=== PATIENT | female | born 1960 | race Caucasian/White ===

== ENCOUNTER → 2021-08-08 12:01 | Outpatient (CLI) | payer OTHER, SELFPAY | PROVIDERS: Visit Provider Physician Assistant | DX: R22.9 Localized swelling, mass and lump, unspecified (principal); N34.3 Urethral syndrome, unspecified | CPT/HCPCS: 87070; 87077; 87086; 87147; 87186; 87205 ==

== ENCOUNTER → 2021-08-16 13:31 | Outpatient (CLI) | payer OTHER, SELFPAY ==
--- NOTE | 2021-08-16 | DI.MG.S_ITS ---
UNILATERAL RIGHT DIGITAL DIAGNOSTIC MAMMOGRAM 3D/2D WITH ADDITIONAL VIEWS: 08/16/2021 CLINICAL: Patient returns today to evaluate focal asymmetries in the right breast. Comparison is made to exams dated: 06/04/2021 mammogram - , 08/12/2019 mammogram, 03/17/2018 mammogram, and 02/27/2017 mammogram - [facility]. The tissue of right breast is predominantly fatty. Two of the previously questioned asymmetries dissipated with spot compression and are not confirmed on the additional views. Another at the 8-9 o'clock position measuring approximately 1 cm persists and appears masslike. IMPRESSION: INCOMPLETE: NEEDS ADDITIONAL IMAGING EVALUATION The focal asymmetry in the right breast is indeterminate. An ultrasound will be performed for further evaluation. Remaining asymmetries questioned on the prior exam are no longer demonstrated. These were likely due to superimposition of normal fibroglandular tissue on the prior study. This exam was interpreted at Station ID: [id number]. NOTE: For mammograms, a report in lay terms will be sent to the patient. Approximately 15% of breast malignancies will not be visualized mammographically. In the management of a palpable breast mass, a negative mammogram must not discourage biopsy of a clinically suspicious lesion. Electronically Signed By: Fadi Parikh M.D. jr/:08/16/2021 15:01:55 ACR BI-RADS Category 0: Incomplete [id number]
--- NOTE | 2021-08-16 | DI.US.S_ITS ---
LIMITED ULTRASOUND OF RIGHT BREAST: 08/16/2021 CLINICAL: Patient returns today to evaluate an asymmetry in the right breast. Comparison is made to exams dated: 08/16/2021 mammogram - [facility], 06/04/2021 mammogram - [facility], 08/12/2019 mammogram, 03/17/2018 mammogram, 02/27/2017 mammogram, and 02/26/2016 mammogram - [facility]. Color flow and real-time ultrasound of the right breast 8-12 o'clock region were performed. Veronica scale images of the real-time examination were reviewed. There is an oval mass in the right breast at 9 o'clock anterior depth. This oval mass is hypoechoic with posterior acoustic shadowing. This correlates with mammography findings. Color flow imaging demonstrates that there is vascularity present. IMPRESSION: SUSPICIOUS OF MALIGNANCY The oval mass in the right breast is suspicious of malignancy. An ultrasound guided biopsy is recommended. This exam was interpreted at Station ID: [id number]. Electronically Signed By: Fadi Parikh M.D., jr/christiano:08/16/2021 15:02:50 letter sent: Biopsy Required Ultrasound BI-RADS: 4 Suspicious for malignancy
== END ==
PROVIDERS: Referring Provider Obstetrics & Gynecology; Visit Provider Obstetrics & Gynecology
DX: R92.8 Other abnormal and inconclusive findings on diagnostic imaging of breast (principal); N63.15 Unspecified lump in the right breast, overlapping quadrants
CPT/HCPCS: 76642; 77065; G0279

== ENCOUNTER → 2021-09-02 13:33 | Outpatient (CLI) | payer OTHER, SELFPAY ==
--- NOTE | 2021-09-02 | DI.US.S_ITS ---
ULTRASOUND GUIDED BIOPSY RIGHT BREAST USING VACUUM DEVICE WITH MARKING DEVICE INSERTED AND POST MAMMOGRAPHIC IMAGIN09/02/2021 CLINICAL: Right breast mass. PATIENT CONSENT: Risks (minor bleeding, infection, vasovagal reaction and repeat procedure), benefits and alternatives were explained to the patient and written informed consent was obtained. Correlation is made to exams dated: 08/16/2021 ultrasound, 08/16/2021 mammogram - [facility], 06/04/2021 mammogram - [facility], 08/12/2019 mammogram, and 03/17/2018 mammogram - [facility]. An ultrasound guided biopsy using real-time ultrasound was performed for the oval mass located in the right breast at 9 o'clock anterior depth. This was described on the previous mammography and ultrasound reports. The skin was prepped in the usual manner. Local anesthetic was administered to the access site. A skin monico was made in the breast. The abnormality was approached from the lateral aspect. A 13 gauge biopsy needle was placed adjacent to the abnormality under ultrasound guidance. Once the needle was documented to be in the correct location, six specimens were obtained using a vacuum assisted device. A clip was inserted into the biopsy cavity. A sterile dressing was applied to the access site. Post procedure mammographic imaging demonstrates the location device at the targeted area. The specimens were sent to the laboratory for pathological analysis. IMPRESSION: ULTRASOUND GUIDED BIOPSY BENIGN Ultrasound guided biopsy of the mass in the right breast at 9 o'clock anterior depth was successful. Pathology indicates benign fibroadenoma (FA). Pathology results are concordant with imaging findings. This exam was interpreted at Station ID: [id number]. Nirmal ballard jr/christiano:09/05/2021 16:46:18
--- NOTE | 2021-09-02 | PATH_ITS ---
[facility] Accession Number: [id number] No. of containers..01 Tissue . 01 Material submitted: . breast - RIGHT BREAST MASS 9:00 7CMFN . 01 Diagnosis: Right Breast, 9 o'clock, 7 cm from Nipple, Image-Guided Core Biopsy: Consistent with hyalinized fibroadenoma. Negative for malignancy. MRV 09/03/2021 1355 Local . 01 Electronically signed: . Carmelina Cheney MD, Pathologist NPI- [id number] . 01 Gross description: . Received one formalin-filled container, labeled with the patient's name and designated right breast mass 9 o'clock 7 cm FN. The specimen is received in a container with a plastic filter, sample loose in container and consists of multiple light yellow-baires portions of partial cylindrical-shaped tissue which range in size from 0.2 x 0.2 x 0.2 cm to 1.2 x 0.3 x 0.2 cm. The specimen is entirely submitted in one cassette. Possible collection date and time per requisition: 09/02/2021. Total fixation time: Approximately 13 hours. ([id number]) /FRIvelisse 09/03/2021 0240 Local . 01 Pathologist provided ICD-10: N60.21 . 01 CPT . 277025 Specimen Comment: A courtesy copy of this report has been sent to [facility] Pathology Performed at: 01 [facility] [address] [place] [address] [id number] MD Toni Neal MD Phone: [phone]
--- NOTE | 2021-09-02 | DI.MG.S_ITS ---
UNILATERAL RIGHT DIGITAL DIAGNOSTIC MAMMOGRAM 3D/2D POST-EXCISIONAL BIOPSY: 09/02/2021 CLINICAL: Right breast mass post clip. Comparison is made to exams dated: 08/16/2021 mammogram - [facility], 06/04/2021 mammogram - [facility], and 03/17/2018 mammogram - [facility]. The tissue of right breast is predominantly fatty. There is a marker clip in the appropriate position in the right breast at 9 o'clock anterior depth. This marker clip placement is at the biopsy site. IMPRESSION: POST PROCEDURE MAMMOGRAM FOR MARKER PLACEMENT There was a successful marker clip placement in the right breast anterior depth. Based on the Tyrer Cuzick model (a risk assessment model) the patient's lifetime risk is 4.0% and her 10 year risk is 1.7%. According to the ACR, ACS, and NCCN guidelines, an annual breast MRI exam along with mammogram is recommended if the patient's lifetime risk is 20% or greater. This exam was interpreted at Station ID: [id number]. NOTE: For mammograms, a report in lay terms will be sent to the patient. Approximately 15% of breast malignancies will not be visualized mammographically. In the management of a palpable breast mass, a negative mammogram must not discourage biopsy of a clinically suspicious lesion. Electronically Signed By: Nirmal Kilpatrick M.D. aty/:09/02/2021 18:30:38 ACR BI-RADS Category Post-procedure mammogram for marker placement
== END ==
PROVIDERS: PCP Registered Nurse; Referring Provider Obstetrics & Gynecology; Visit Provider Obstetrics & Gynecology
DX: D24.1 Benign neoplasm of right breast (principal)
CPT/HCPCS: 19083; 77065

== ENCOUNTER → 2021-12-23 11:39 | Outpatient (CLI) | payer OTHER, SELFPAY ==
[2021-12-23 12:12] LABS: Add Manual Diff / Slide Review NO; Basophils Absolute Auto 0 /uL (0-100); Basophils Percent Auto 0.7 % (0-2); Eosinophils Absolute Auto 200 /uL (0-450); Eosinophils Percent Auto 4.2 % (2-4); Hematocrit 41.7 % (36-46); Hemoglobin 13.9 g/dL (12.0-16.0); Lymphocytes Absolute Auto 1500 /uL (1100-4500); Mean Corpuscular HGB Conc 33.3 % (30-36); Mean Corpuscular Volume 89.9 fL (80-100); Monocytes Absolute Auto 400 /uL (0-900); Monocytes Percent Auto 7.2 % (3-14); Neutrophils Absolute Auto 3700 /uL (1500-7000); Neutrophils Percent Auto 61.9 % (50-75); Platelet Count 235 X10^3/uL (150-400); Red Blood Cell Count 4.63 X10^6/uL (4.0-5.2); Red Cell Distribution Width 12.9 % (11.6-14.8); White Blood Cell Count 5.9 X10^3/uL (4.5-11.0)
[2021-12-23 12:24] LABS: Alanine Aminotransferase 30 IU/L (<35); Albumin 4.3 g/dL (3.5-5.0); Albumin Globulin Ratio 1.2 (1.0-2.8); Alkaline Phosphatase 67 U/L (38-126); Aspartate Aminotransferase 34 IU/L (14-36); BUN Creatinine Ratio 14.1 (6-22); Bilirubin Total 0.3 mg/dL (0.2-1.3); Blood Urea Nitrogen 12 mg/dL (7-17); Calcium 9.4 mg/dL (8.4-10.2); Carbon Dioxide 29 mmol/L (22-32); Chloride 105 mmol/L (98-107); Estimated Glomerular Filt Rate > 60 mL/min (>60); Globulin 3.7 g/dL (1.7-4.1); Glucose 108 mg/dL (80-110); HEMOLYSIS < 15 (0-50); Potassium 4.5 mmol/L (3.4-5.1); Sodium 142 mmol/L (137-145)
[2021-12-23 13:05] LABS: TSH w/ Reflex to FT4 1.55 uIU/mL (0.47-4.68)
== END ==
PROVIDERS: PCP Registered Nurse; Referring Provider Student in an Organized Health Care Education/Training Program; Visit Provider Student in an Organized Health Care Education/Training Program
DX: R53.83 Other fatigue (principal); M54.2 Cervicalgia
CPT/HCPCS: 36415; 80053; 84443; 85025

== ENCOUNTER 2022-05-31 14:09 | Inpatient (IN) | payer BC, SELFPAY ==
[2022-05-31] VITALS (35 sets, daily range): BP systolic 90–160; BP diastolic 51–106; PULSE 35–89; RESP 6–45; TEMP 36.4–37.1; O2SAT 96–100; BMI 21.1; BMI 20.6
--- NOTE | 2022-05-31 14:21 | DI.RAD.S_ITS ---
PROCEDURE: XR CHEST 1V INDICATIONS: chest pain TECHNIQUE: One view of the chest was acquired. COMPARISON: None. FINDINGS: Surgical changes and devices: None. Lungs and pleura: Lungs are clear. No pleural effusions or pneumothorax. Mediastinum: Mediastinal contours appear normal. Heart size is normal. Bones and chest wall: No suspicious bony lesions. Overlying soft tissues appear unremarkable. IMPRESSION: No acute cardiopulmonary abnormality. Approved by: Lamonte Mohr M.D. on 05/31/2022 at 15:06
--- NOTE | 2022-05-31 14:21 | ED.DIZZY ---
HPI - Dizziness General Chief Complaint: Arrhythmia/Palpitations Stated Complaint: Dizziness, Low BP, fatigue,not feeling right Time Seen by Provider: 05/31/22 14:12 History of Present Illness HPI Narrative: Patient is a 62-year-old female history of hypertension on propranolol personally today with dizziness lightheadedness and bradycardia. She reports that she is not been feeling great for the last month weak tired thinning hair. Today she was at [employer] she felt like she might pass out she went into her blood pressure and heart rate she was found to have a heart rate in the 30s. She was able to drive home she then looked on the Internet and drove herself here to the emergency. She denies numbness tingling or weakness. She did not pass out. She does take propranolol daily. Related Data Home Medications Medication Instructions Recorded Confirmed clonazepam 0.5 mg tablet 0.5 mg PO BID 12/23/21 05/31/22 cholecalciferol (vitamin D3) 10 400 unit PO DAILY 05/31/22 05/31/22 mcg (400 unit) capsule [id number] 1 tab PO DAILY 05/31/22 05/31/22 tablet (Multivitamin 50 Plus tablet) Allergies Allergy/AdvReac Type Severity Reaction Status Date / Time Sulfa (Sulfonamide Allergy Intermediate throat Verified 05/31/22 14:24 Antibiotics) swelling Review of Systems Review of Systems ROS Unobtainable: All systems reviewed & are unremarkable except as noted in HPI and below Patient History Medical History Anxiety Surgical History History of breast biopsy Family History Father No problems noted. Mother No problems noted. Social History household members: spouse Smoking Status: Never smoker alcohol intake: current Smoking Status: Never smoker Exam Initial Vital Signs Initial Vital Signs: Vital Signs Pulse Rate 53 L 05/31/22 14:19 Blood Pressure 129/69 05/31/22 14:19 Pulse Oximetry 96 05/31/22 14:19 GENERAL: Alert pleasant 62-year-old female and in no acute distress. HEENT: Head atraumatic,EOMI, pupils reactive, face symmetric, moist mucous membranes CARDIOVASCULAR: Regular rate and rhythm without murmurs, rubs or gallops. RESPIRATORY: Breath sounds equal bilaterally, no wheezes rales or rhonchi. ABDOMEN: Soft, nontender. Normoactive bowel sounds all 4 quadrants. No guarding or rebound. EXTREMITIES: Normal range of motion, no clubbing or edema. Neurovascularly intact NEUROLOGICAL: Alert and oriented x4. Advertising Director strength equal bilaterally SKIN: Warm, dry, no laceration, no petechiae, no rashes or lesions. Course Orders Ordered: Discontinued Medications Acetaminophen (Acetaminophen 325 Mg Tablet) 650 mg PO Q6H PRN PRN Reason: Fever/Mild Pain (1-3) Artificial Tears (Polyvinyl Alcohol Drops) 1 drops EYE-BOTH Q2HR PRN PRN Reason: Dry Eye(s) Atropine Sulfate (Atropine 1 Mg/10 Ml Syringe) 0.5 mg IV PRN ONE Stop: 05/31/22 18:57 Last Admin: 06/03/22 07:39 Dose: Not Given Documented By: VINCENZO Clonazepam (Clonazepam 0.5 Mg Tablet) 0.5 mg PO BID [facility] Last Admin: 06/03/22 12:25 Dose: 0.5 mg Documented By: Admin: 06/02/22 20:47 Dose: 0.5 mg Documented By: Admin: 06/02/22 09:45 Dose: 0.5 mg Documented By: Admin: 06/01/22 21:30 Dose: 0.5 mg Documented By: Admin: 06/01/22 14:12 Dose: 0.5 mg Documented By: BRANT Enoxaparin Sodium (Enoxaparin 40 Mg/0.4 Ml Syringe) 40 mg SUBCUT DAILY [facility] Last Admin: 06/03/22 12:30 Dose: Not Given Documented By: Admin: 06/02/22 09:44 Dose: 40 mg Documented By: Admin: 06/01/22 08:30 Dose: 40 mg Documented By: RLNicholas Glucagon (Glucagon,Human Recombinant 1 Mg/Ml Vial) 2 mg IV NOW ONE Stop: 05/31/22 16:08 Last Admin: 05/31/22 16:19 Dose: 2 mg Documented By: NR Sodium Chloride (Normal Saline 0.9%) 1,000 mls @ 150 mls/hr IV CONT [facility] Last Infusion: 05/31/22 22:22 Dose: 0 mls/hr Documented By: Admin: 05/31/22 14:44 Dose: 150 mls/hr Documented By: JUAN Dextrose/Sodium Chloride (Dextrose 5%-0.9% Ns) 1,000 mls @ 100 mls/hr IV CONT [facility] Last Infusion: 06/01/22 08:32 Dose: 0 mls/hr Documented By: Admin: 05/31/22 22:22 Dose: 100 mls/hr Documented By: LINDA Metoclopramide HCl (Metoclopramide 10 Mg/2 Ml Inj) 10 mg IV NOW ONE Stop: 05/31/22 16:28 Last Admin: 05/31/22 18:05 Dose: Not Given Documented By: RL(2) Naloxone HCl (Naloxone 0.4 Mg/Ml Vial) 0.2 mg IV Q2MIN PRN PRN Reason: Opiate Reversal Ondansetron HCl (Ondansetron 4 Mg/2 Ml Inj) 4 mg IV Q8HR PRN PRN Reason: Nausea And Vomiting Sodium Chloride (Sodium Chloride 0.9% Flush) 10 ml IV PRN PRN PRN Reason: Flush Sodium Chloride (Sodium Chloride 0.9% Flush) 10 ml IV BID [facility] Last Admin: 06/03/22 12:29 Dose: 10 ml Documented By: Admin: 06/02/22 20:48 Dose: 10 ml Documented By: MARGARET Vital Signs Vital signs: Vital Signs - 8 hr 05/31/22 16:00 05/31/22 16:00 05/31/22 16:10 Pulse Rate 37 L 38 L Respiratory Rate 12 20 Blood Pressure 108/66 Pulse Oximetry 98 97 05/31/22 16:10 05/31/22 16:15 05/31/22 16:15 Pulse Rate 52 L Respiratory Rate 11 L Blood Pressure 119/64 131/69 Pulse Oximetry 99 05/31/22 16:26 05/31/22 16:26 05/31/22 16:30 Pulse Rate 41 L Respiratory Rate 11 L Blood Pressure 139/70 139/63 Pulse Oximetry 100 05/31/22 16:30 05/31/22 16:45 05/31/22 16:46 Pulse Rate 40 L 38 L Respiratory Rate 10 L 17 Blood Pressure 112/60 Pulse Oximetry 99 98 05/31/22 16:46 Pulse Rate 38 L Respiratory Rate 13 Blood Pressure Pulse Oximetry 98 MDM - Dizziness Lab Data 05/31/22 14:25 06/01/22 04:23 Labs: Lab Results 05/31/22 05/31/22 05/31/22 Range/Units 11:50 14:25 14:25 WBC 8.3 (4.5-11.0) X10^3/uL RBC 4.78 (4.0-5.2) X10^6/uL Hgb 14.5 (12.0-16.0) g/dL Hct 42.3 (36-46) % MCV 88.5 (80-100) fL MCH 30.3 (26-34) PG MCHC 34.2 (30-36) % RDW 12.6 (11.6-14.8) % Plt Count 244 (150-400) X10^3/uL Neut % (Auto) 69.3 (50-75) % Lymph % (Auto) 20.4 L (25-40) % [place] % (Auto) 7.1 (3-14) % Eos % (Auto) 2.4 (2-4) % Baso % (Auto) 0.8 (0-2) % Neut # (Auto) 5700 (1309-7283) /uL Lymph # (Auto) 1700 (7930-6160) /uL [place] # (Auto) 600 (0-900) /uL Eos # (Auto) 200 (0-450) /uL Baso # (Auto) 100 (0-100) /uL Sodium 141 (137-145) mmol/L Potassium 4.0 (3.4-5.1) mmol/L Chloride 105 (98-107) mmol/L Carbon Dioxide 30 (22-32) mmol/L BUN 17 (7-17) mg/dL Creatinine 0.88 (0.52-1.04) mg/dL Estimated GFR > 60 (>60) mL/min BUN/Creatinine Ratio 19.3 (6-22) Glucose 91 (80-110) mg/dL Calcium 9.7 (8.4-10.2) mg/dL Magnesium (1.6-2.3) mg/dL Total Bilirubin 0.4 (0.2-1.3) mg/dL AST 36 (14-36) IU/L ALT 31 (<35) IU/L Alkaline Phosphatase 73 (38-126) U/L Total Creatine Kinase 58 (30-135) U/L CK-MB (CK-2) TNP CK-MB (CK-2) Rel Index TNP Troponin I < 0.012 (0.01-0.034) ng/mL NT-Pro-B Natriuret Pep (<125) pg/mL Total Protein 8.0 (6.3-8.2) g/dL Albumin 4.2 (3.5-5.0) g/dL Globulin 3.8 (1.7-4.1) g/dL Albumin/Globulin Ratio 1.1 (1.0-2.8) Lipase 191 (23-300) U/L Procalcitonin 0.05 (<0.5) ng/mL TSH (0.47-4.68) uIU/mL Nasal Screen MRSA (PCR) (Not Detect) SARS-CoV-2 (PCR) Negative (Negative) 05/31/22 05/31/22 05/31/22 Range/Units 14:25 14:25 14:25 WBC (4.5-11.0) X10^3/uL RBC (4.0-5.2) X10^6/uL Hgb (12.0-16.0) g/dL Hct (36-46) % MCV (80-100) fL MCH (26-34) PG MCHC (30-36) % RDW (11.6-14.8) % Plt Count (150-400) X10^3/uL Neut % (Auto) (50-75) % Lymph % (Auto) (25-40) % [place] % (Auto) (3-14) % Eos % (Auto) (2-4) % Baso % (Auto) (0-2) % Neut # (Auto) (5491-7025) /uL Lymph # (Auto) (5883-6497) /uL [place] # (Auto) (0-900) /uL Eos # (Auto) (0-450) /uL Baso # (Auto) (0-100) /uL Sodium (137-145) mmol/L Potassium (3.4-5.1) mmol/L Chloride (98-107) mmol/L Carbon Dioxide (22-32) mmol/L BUN (7-17) mg/dL Creatinine (0.52-1.04) mg/dL Estimated GFR (>60) mL/min BUN/Creatinine Ratio (6-22) Glucose (80-110) mg/dL Calcium (8.4-10.2) mg/dL Magnesium 2.3 (1.6-2.3) mg/dL Total Bilirubin (0.2-1.3) mg/dL AST (14-36) IU/L ALT (<35) IU/L Alkaline Phosphatase (38-126) U/L Total Creatine Kinase (30-135) U/L CK-MB (CK-2) CK-MB (CK-2) Rel Index Troponin I (0.01-0.034) ng/mL NT-Pro-B Natriuret Pep 122 (<125) pg/mL Total Protein (6.3-8.2) g/dL Albumin (3.5-5.0) g/dL Globulin (1.7-4.1) g/dL Albumin/Globulin Ratio (1.0-2.8) Lipase (23-300) U/L Procalcitonin (<0.5) ng/mL TSH 1.07 (0.47-4.68) uIU/mL Nasal Screen MRSA (PCR) (Not Detect) SARS-CoV-2 (PCR) (Negative) 05/31/22 05/31/22 06/01/22 Range/Units 18:30 22:40 04:23 WBC (4.5-11.0) X10^3/uL RBC (4.0-5.2) X10^6/uL Hgb (12.0-16.0) g/dL Hct (36-46) % MCV (80-100) fL MCH (26-34) PG MCHC (30-36) % RDW (11.6-14.8) % Plt Count (150-400) X10^3/uL Neut % (Auto) (50-75) % Lymph % (Auto) (25-40) % [place] % (Auto) (3-14) % Eos % (Auto) (2-4) % Baso % (Auto) (0-2) % Neut # (Auto) (9987-2849) /uL Lymph # (Auto) (2236-1779) /uL [place] # (Auto) (0-900) /uL Eos # (Auto) (0-450) /uL Baso # (Auto) (0-100) /uL Sodium (137-145) mmol/L Potassium (3.4-5.1) mmol/L Chloride (98-107) mmol/L Carbon Dioxide (22-32) mmol/L BUN (7-17) mg/dL Creatinine (0.52-1.04) mg/dL Estimated GFR (>60) mL/min BUN/Creatinine Ratio (6-22) Glucose (80-110) mg/dL Calcium (8.4-10.2) mg/dL Magnesium (1.6-2.3) mg/dL Total Bilirubin (0.2-1.3) mg/dL AST (14-36) IU/L ALT (<35) IU/L Alkaline Phosphatase (38-126) U/L Total Creatine Kinase (30-135) U/L CK-MB (CK-2) CK-MB (CK-2) Rel Index Troponin I < 0.012 < 0.012 (0.01-0.034) ng/mL NT-Pro-B Natriuret Pep (<125) pg/mL Total Protein (6.3-8.2) g/dL Albumin (3.5-5.0) g/dL Globulin (1.7-4.1) g/dL Albumin/Globulin Ratio (1.0-2.8) Lipase (23-300) U/L Procalcitonin (<0.5) ng/mL TSH (0.47-4.68) uIU/mL Nasal Screen MRSA (PCR) Not detected (Not Detect) SARS-CoV-2 (PCR) (Negative) 06/01/22 Range/Units 04:23 WBC (4.5-11.0) X10^3/uL RBC (4.0-5.2) X10^6/uL Hgb (12.0-16.0) g/dL Hct (36-46) % MCV (80-100) fL MCH (26-34) PG MCHC (30-36) % RDW (11.6-14.8) % Plt Count (150-400) X10^3/uL Neut % (Auto) (50-75) % Lymph % (Auto) (25-40) % [place] % (Auto) (3-14) % Eos % (Auto) (2-4) % Baso % (Auto) (0-2) % Neut # (Auto) (5686-2021) /uL Lymph # (Auto) (9574-8459) /uL [place] # (Auto) (0-900) /uL Eos # (Auto) (0-450) /uL Baso # (Auto) (0-100) /uL Sodium 141 (137-145) mmol/L Potassium 3.9 (3.4-5.1) mmol/L Chloride 110 H (98-107) mmol/L Carbon Dioxide 25 (22-32) mmol/L BUN 17 (7-17) mg/dL Creatinine 0.70 (0.52-1.04) mg/dL Estimated GFR > 60 (>60) mL/min BUN/Creatinine Ratio 24.3 H (6-22) Glucose 108 (80-110) mg/dL Calcium 8.4 (8.4-10.2) mg/dL Magnesium (1.6-2.3) mg/dL Total Bilirubin (0.2-1.3) mg/dL AST (14-36) IU/L ALT (<35) IU/L Alkaline Phosphatase (38-126) U/L Total Creatine Kinase (30-135) U/L CK-MB (CK-2) CK-MB (CK-2) Rel Index Troponin I (0.01-0.034) ng/mL NT-Pro-B Natriuret Pep (<125) pg/mL Total Protein (6.3-8.2) g/dL Albumin (3.5-5.0) g/dL Globulin (1.7-4.1) g/dL Albumin/Globulin Ratio (1.0-2.8) Lipase (23-300) U/L Procalcitonin (<0.5) ng/mL TSH (0.47-4.68) uIU/mL Nasal Screen MRSA (PCR) (Not Detect) SARS-CoV-2 (PCR) (Negative) Point of Care Testing Glucose POC 74 Imaging Data Chest x-ray: Radiologist's Impression: PROCEDURE:? XR CHEST 1V ? INDICATIONS:? chest pain ? TECHNIQUE:? One view of the chest was acquired.? ? COMPARISON:? None. ? FINDINGS:? ? Surgical changes and devices:? None.? ? Lungs and pleura:? Lungs are clear.? No pleural effusions or pneumothorax.? ? Mediastinum:? Mediastinal contours appear normal.? Heart size is normal.? ? Bones and chest wall:? No suspicious bony lesions.? Overlying soft tissues appear unremarkable.? ? IMPRESSION:? No acute cardiopulmonary abnormality. ? ? ? Approved by: Lamonte Mohr M.D. on 05/31/2022 at 15:06? ECG Data Interpretation: EKG 1. Sinus rhythm, probable Wenckebach EKG, left bundle-branch block noted no priors to compare no Sgarbossa criteria EKG 2. Sinus rhythm MDM Narrative Medical decision making narrative: Patient is found to be bradycardic with heart rate in the 30s and 40s. She is taking 40 mg propranolol day she has not missed a dose. This is likely the cause of her bradycardia she is mildly dizzy. She actually did get 2 mg of glucagon should help significantly. She is been ambulatory to the restroom she has not passed out. Blood work is overall reassuring she is no leukocytosis anemia no abnormality TSH is also within normal limits or x-ray is also negative. Dr. Armando, cardiology updated on patient's symptoms test results recommends holding propranolol reassessing in about 24 hours. Heart rate has not improved if she is still mildly symptomatic with the knee transfer over to [facility] for probable pacemaker. Discharge Plan Departure Patient Disposition: Admitted As Inpatient Clinical Impression: Symptomatic bradycardia, Adverse effect of drug/medicinal Admit Date/Time: 06/01/22 12:02 Admit Provider: Jacquelyn Ross
[2022-05-31 14:32] LABS: Add Manual Diff / Slide Review NO; Basophils Absolute Auto 100 /uL (0-100); Basophils Percent Auto 0.8 % (0-2); Eosinophils Absolute Auto 200 /uL (0-450); Eosinophils Percent Auto 2.4 % (2-4); Hematocrit 42.3 % (36-46); Hemoglobin 14.5 g/dL (12.0-16.0); Lymphocytes Absolute Auto 1700 /uL (1100-4500); Lymphocytes Percent Auto 20.4 % (25-40); Mean Corpuscular HGB Conc 34.2 % (30-36); Mean Corpuscular Hemoglobin 30.3 PG (26-34); Mean Corpuscular Volume 88.5 fL (80-100); Monocytes Absolute Auto 600 /uL (0-900); Monocytes Percent Auto 7.1 % (3-14); Neutrophils Absolute Auto 5700 /uL (1500-7000); Neutrophils Percent Auto 69.3 % (50-75); Platelet Count 244 X10^3/uL (150-400); Red Blood Cell Count 4.78 X10^6/uL (4.0-5.2); Red Cell Distribution Width 12.6 % (11.6-14.8); White Blood Cell Count 8.3 X10^3/uL (4.5-11.0)
[2022-05-31] MEDS: SODIUM CHLORIDE 0.9% 1,000 ML 150 ML IV (14:44)
[2022-05-31 14:45] LABS: Alanine Aminotransferase 31 IU/L (<35); Albumin 4.2 g/dL (3.5-5.0); Albumin Globulin Ratio 1.1 (1.0-2.8); Alkaline Phosphatase 73 U/L (38-126); Aspartate Aminotransferase 36 IU/L (14-36); BUN Creatinine Ratio 19.3 (6-22); Bilirubin Total 0.4 mg/dL (0.2-1.3); Blood Urea Nitrogen 17 mg/dL (7-17); Calcium 9.7 mg/dL (8.4-10.2); Carbon Dioxide 30 mmol/L (22-32); Chloride 105 mmol/L (98-107); Creatine Kinase 58 U/L (30-135); Estimated Glomerular Filt Rate > 60 mL/min (>60); Globulin 3.8 g/dL (1.7-4.1); Glucose 91 mg/dL (80-110); HEMOLYSIS 15 (0-50); Lipase 191 U/L (23-300); Sodium 141 mmol/L (137-145)
[2022-05-31 14:52] LABS: Magnesium 2.3 mg/dL (1.6-2.3)
[2022-05-31 14:56] LABS: Troponin I < 0.012 ng/mL (0.01-0.034)
[2022-05-31 15:01] LABS: Procalcitonin 0.05 ng/mL (<0.5)
[2022-05-31 15:21] LABS: COVID19 -Nasal RAPID Negative (Negative)
[2022-05-31 15:21] LABS: Thyroid Stimulating Hormone 1.07 uIU/mL (0.47-4.68)
[2022-05-31] MEDS: GLUCAGON,HUMAN RECOMBINANT 1 MG/ML VIAL 2 MG IV (16:19)
--- NOTE | 2022-05-31 16:35 | PC.NURSE ---
offered pt nausea medications, explained side effects of feeling jittery but assured pt if given slowly this can be minimal. pt states her nasuea is actually feeling better and she would like to not take more medications than necessary. provider notified. left on EMAR incase pt changes her mind or nausea increases
--- NOTE | 2022-05-31 18:26 | PC.NURSE ---
Patient arrived from the emergency department via stretcher to room 229 at 1815. Ambulated to BR and bed without symptoms. Telemetry attached. Oriented patient to room, call light within reach. Awaiting orders from provider.
[2022-05-31 19:46] LABS: MRSA (Nasal) PCR Not Detected (Not Detect)
--- NOTE | 2022-05-31 22:08 | DI.ECHO.S_ITS ---
[facility] +---------+ : : [address] : [address] : : : : [id number] : : : : Phone: [phone]+ Echocardiogram Report + + :Name: CASE DOWNING Study Date: 06/01/2022 Height: 69 in : :[facility] [employer] ReadingLocation: [facility] Weight: 139 lb : : Gender: Female BSA: 1.8 m2 : :: 1960 Age: 62 yrs BP: 105/59 mmHg: : Performed By: Tereas Khan : :Referring: JORGE MARQUEZ : + + Interpretation Summary The left ventricle is normal in size. Left ventricular systolic function appears normal without focal wall motion abnormalities. The ejection fraction is estimated to be 65-70%. The right ventricle is normal size. The right ventricular systolic function is normal. Pulmonary artery pressures cannot be estimated because of the lack of a measurable TR jet velocity. The left atrial size is normal. Right atrial size is normal. There is mild mitral regurgitation. There is mild aortic regurgitation. There is no other significant valvular heart disease. The aortic root is normal size. Procedure: A two-dimensional transthoracic echocardiogram with color flow and Doppler was performed. The study quality was technically adequate. There is no prior echocardiogram noted for this patient. The patient was in a bradycardic rhythm during the exam. Left Ventricle: The left ventricle is normal in size. Left ventricular systolic function appears normal without focal wall motion abnormalities. The ejection fraction is estimated to be 65-70%. Diastolic function could not be accurately assessed due to contradictory data. Right Ventricle: The right ventricle is normal size. The right ventricular systolic function is normal. Atria: The left atrial size is normal. Right atrial size is normal. There is no Doppler evidence for an interatrial shunt. Mitral Valve: The mitral valve is grossly normal. There is no mitral valve stenosis. There is mild mitral regurgitation. Aortic Valve: The aortic valve is trileaflet. The aortic valve opens well. There is no aortic valve stenosis. There is mild aortic regurgitation. Tricuspid Valve: The tricuspid valve is normal. There is no tricuspid stenosis. Pulmonary artery pressures cannot be estimated because of the lack of a measurable TR jet velocity. Pulmonic Valve: The pulmonic valve leaflets are thin and pliable; valve motion is normal. There is no pulmonic valvular stenosis. There is no pulmonic valvular regurgitation. There is no other significant valvular heart disease. Great Vessels: The aortic root is normal size. The ascending aorta is normal in size. The pulmonary artery is normal size. The IVC is of normal diameter and collapses less than 50% with a sniff. This suggests a right atrial pressure of 8 mm Hg. Pericardium/ Pleura There is no pericardial effusion. There is no pleural effusion. MMode/2D Measurements & Calculations LVIDd: 4.2 cm LVOT diam: 2.2 cm LVIDs: 2.5 cm Ao root diam: 3.3 cm FS: 39.3 % asc Aorta Diam: 3.4 cm IVSd: 1.1 cm LVPWd: 0.95 cm LV robison. diameter/BSA (cm/m^2): 2.3 LV sys. diameter/BSA (cm/m^2): 1.4 LA A2 area: 9.9 cm2 RA long axis: 4.2 cm LA A4 area: 13.4 cm2 RA area: 9.8 cm2 LA length (vol): 4.4 cm RA vol: 19.4 ml LA vol: 25.8 ml RA : 11.0 ml/m2 LA vol index: 14.6 ml/m2 IVC diam: 2.0 cm TAPSE: 2.6 cm Doppler Measurements & Calculations Ao V2 max: 136.0 cm/sec LVOT Max Cholo: 97.9 cm/sec Ao V2 mean: 88.0 cm/sec LV V1 max P.8 mmHg Ao max P.4 mmHg LV V1 VTI: 21.9 cm Ao mean P.6 mmHg DYALN(I,D): 3.1 cm2 Ao V2 VTI: 27.3 cm DYLAN(V,D): 2.8 cm2 sev ratio: 0.80 DYLAN indexed to BSA (cm^2/m^2): 1.7 AI P1/2t: 846.1 msec AI dec slope: 155.1 cm/sec2 MV E max cholo: 133.8 cm/sec PA V2 max: 66.3 cm/sec MV A max cholo: 56.4 cm/sec PA V2 mean: 50.4 cm/sec MV E/A: 2.4 PA mean P.1 mmHg MV dec time: 0.15 sec PA pr(Accel): 15.6 mmHg SV(LVOT): 84.0 ml Reading Physician:06:32 PM
--- NOTE | 2022-05-31 22:09 | PM.HP.1 ---
History of Present Illness History of Present Illness Date Patient Seen: 05/31/22 Time Patient Seen: 22:09 Chief complaint: Dizziness, Low BP, fatigue,not feeling right Narrative: Jessica Jacobo is a 62-year-old female history of hypertension on propranolol presented today with dizziness lightheadedness and bradycardia. Today she was at [employer] she felt like she might pass out she went into her blood pressure and heart rate she was found to have a heart rate in the 30s.? Patient's spouse just recently . Patient's heart rate in the ED varied from 37-53, respiratory rate 20-28. On admit patient denies chest pain, shortness in breath, headache, changes in vision, difficulty swallowing, speech impairment, numbness, tingling, difficulty with ambulation, recent falls, head injury, LOC, fever, body aches, chills, cough, recent exposure to illness, abdominal pain, nausea, vomiting, urinary incontinence/retention, dysuria, frequency, urgency, hematuria, bowel changes, constipation, incontinence, melena, rashes, recent changes to medication, illness, injury, or trauma. Patient appears hypovolemic, malonourished female. Vitals 98.7, BP 104/58, pulse 40, respirations 20, O2 saturation 97% on room air. Patient's laboratory and diagnostic workups are predominantly unremarkable to include negative COVID, negative chest x-ray. Patient's EKG which I personally reviewed sinus bradycardic rhythm with a rate of 69 first-degree AV block with a left axis and left bundle branch block. Should be noted that patient takes propranolol 20 mg b.i.d. for a reported history of hypertension and clonazepam 0.5 mg p.o. b.i.d. patient admitted for observation for symptomatic bradycardia and near-syncope. Patient History Medical History (Updated 06/01/22 @ 02:06 by SARA Alvarez) Anxiety Surgical History (Updated 06/01/22 @ 02:05 by SARA Alvarez) History of breast biopsy Family & Social History Family History Father No problems noted. Mother No problems noted. Social History: household members spouse Prior Living Arrangements House Safety & Behavioral: Feels Safe in Current Yes Environment Been Physically Hurt or No Threatened By a Person Tobacco & Substance use: Smoking Status Never smoker alcohol intake current alcohol intake frequency holiday/special occasion Substance Use Type does not use Meds Home Medications and Allergies Home Medications Medication Instructions Recorded Confirmed Type clonazepam 0.5 mg tablet 0.5 mg PO BID 12/23/21 05/31/22 History propranolol 10 mg tablet 20 mg PO BID 12/23/21 05/31/22 History cholecalciferol (vitamin D3) 10 400 unit PO DAILY 05/31/22 05/31/22 History mcg (400 unit) capsule gmrmzzafsuhe-vusdfjwm-rubijs 1 tab PO DAILY 05/31/22 05/31/22 History tablet (Multivitamin 50 Plus tablet) Allergies Allergy/AdvReac Type Severity Reaction Status Date / Time Sulfa (Sulfonamide Allergy Intermediate throat Verified 05/31/22 14:24 Antibiotics) swelling Review of Systems Review of Systems Narrative: All 12 point systems reviewed with the patient and are negative except otherwise documented. Exam Vital Signs (past 8 hours): - 05/31/22 14:22 05/31/22 14:19 05/31/22 14:19 Temperature 97.5 F L Pulse Rate 37 L 53 L Respiratory Rate 16 Blood Pressure 129/69 129/69 Pulse Oximetry 100 96 Oxygen Delivery Method Room Air 05/31/22 14:30 05/31/22 14:30 05/31/22 14:45 Temperature Pulse Rate 49 L Respiratory Rate 19 Blood Pressure 123/61 116/55 L Pulse Oximetry 100 Oxygen Delivery Method 05/31/22 14:45 05/31/22 15:00 05/31/22 15:00 Temperature Pulse Rate 40 L 45 L Respiratory Rate 11 L 17 Blood Pressure 99/55 L Pulse Oximetry 99 98 Oxygen Delivery Method 05/31/22 15:15 05/31/22 15:15 05/31/22 15:30 Temperature Pulse Rate 38 L Respiratory Rate 13 Blood Pressure 112/59 L 126/75 Pulse Oximetry 97 Oxygen Delivery Method Room Air 05/31/22 15:30 05/31/22 15:41 05/31/22 15:41 Temperature Pulse Rate 40 L 71 Respiratory Rate 28 H 18 Blood Pressure 138/74 Pulse Oximetry 98 99 Oxygen Delivery Method 05/31/22 15:45 05/31/22 15:46 05/31/22 15:46 Temperature Pulse Rate 36 L 51 L Respiratory Rate 12 6 L Blood Pressure 139/60 Pulse Oximetry 99 99 Oxygen Delivery Method Room Air 05/31/22 15:49 05/31/22 15:49 05/31/22 16:00 Temperature Pulse Rate 39 L Respiratory Rate 12 Blood Pressure 105/55 L 108/66 Pulse Oximetry 99 Oxygen Delivery Method 05/31/22 16:00 05/31/22 16:10 05/31/22 16:10 Temperature Pulse Rate 37 L 38 L Respiratory Rate 12 20 Blood Pressure 119/64 Pulse Oximetry 98 97 Oxygen Delivery Method 05/31/22 16:15 05/31/22 16:15 05/31/22 16:26 Temperature Pulse Rate 52 L 41 L Respiratory Rate 11 L 11 L Blood Pressure 131/69 Pulse Oximetry 99 100 Oxygen Delivery Method 05/31/22 16:26 05/31/22 16:30 05/31/22 16:30 Temperature Pulse Rate 40 L Respiratory Rate 10 L Blood Pressure 139/70 139/63 Pulse Oximetry 99 Oxygen Delivery Method 05/31/22 16:45 05/31/22 16:46 05/31/22 16:46 Temperature Pulse Rate 38 L 38 L Respiratory Rate 17 13 Blood Pressure 112/60 Pulse Oximetry 98 98 Oxygen Delivery Method 05/31/22 17:00 05/31/22 17:00 05/31/22 17:15 Temperature Pulse Rate 37 L Respiratory Rate 14 Blood Pressure 104/61 109/61 Pulse Oximetry 98 Oxygen Delivery Method Room Air 05/31/22 17:15 05/31/22 17:30 05/31/22 17:30 Temperature Pulse Rate 36 L 40 L Respiratory Rate 15 22 Blood Pressure 119/60 Pulse Oximetry 98 98 Oxygen Delivery Method Room Air 05/31/22 17:45 05/31/22 17:45 05/31/22 18:00 Temperature Pulse Rate 46 L 41 L Respiratory Rate 36 H 23 Blood Pressure 160/80 H Pulse Oximetry 99 100 Oxygen Delivery Method 05/31/22 18:00 05/31/22 18:23 05/31/22 18:23 Temperature Pulse Rate 41 L Respiratory Rate 21 Blood Pressure 137/70 143/66 H Pulse Oximetry 97 Oxygen Delivery Method 05/31/22 19:00 05/31/22 19:00 05/31/22 19:26 Temperature Pulse Rate 89 39 L Respiratory Rate 45 H 28 H Blood Pressure 144/106 H Pulse Oximetry 98 100 Oxygen Delivery Method 05/31/22 19:26 05/31/22 20:01 05/31/22 20:01 Temperature 98.7 F Pulse Rate 50 L Respiratory Rate 26 H Blood Pressure 110/55 L 102/56 L Pulse Oximetry 98 Oxygen Delivery Method 05/31/22 20:08 05/31/22 21:00 05/31/22 21:00 Temperature Pulse Rate 40 L 41 L Respiratory Rate 37 H 23 Blood Pressure 104/58 L Pulse Oximetry 98 97 Oxygen Delivery Method 05/31/22 21:12 05/31/22 20:00 Temperature Pulse Rate 40 L Respiratory Rate 20 Blood Pressure Pulse Oximetry 97 Oxygen Delivery Method Room Air Oxygen Delivery Method Room Air Narrative Exam Narrative: General: Patient is a well-developed, well-nourished in no distress at this time. HEENT: Normocephalic, atraumatic, extraocular muscles intact, oral pharynx is clear and mucous membranes are dry. Neck is supple and symmetric, trachea is midline, no adenopathy, no thyroid enlargement, nontender, no masses palpated. Negative for JVD Chest: Normal AP diameter and contour without kyphoscoliosis, no nasal flaring, retractions, or tachypneic labored Lungs: Auscultation of all lung pate are clear without adventitious sounds, wheezes, rhonchi, or rales. Cardio: Bradycardic regular rate and rhythm without murmur, rubs, or gallops, no carotid bruit, no cardiac pulsations present. Abdomen: Soft nontender, negative for organomegaly, or masses. Bowel sounds are present in all 4 quadrants without guarding or rebound, no CVA tenderness. Musculoskeletal: Muscle strength and tone are equal within normal limits, no deformity, crepitus, effusions, cyanosis, clubbing or edema present. Full range of motion intact radial and pedal pulses are normal. Skin: Warm, dry, hypovolemia, and intact without rashes, ulcerations or petechiae. Neuro: Alert and orientated x3, strength is +5/5 in all extremities, sensation to touch intact, no gross deficits noted of cranial nerves. Psych: Patient has a well-kept appearance, appropriate affect, mental status attitude thought context and judgment are appropriate for age. Objective Labs 05/31/22 14:25 05/31/22 14:25 Labs: Laboratory Results - last 24 hr 05/31/22 05/31/22 05/31/22 11:50 14:25 14:25 WBC 8.3 RBC 4.78 Hgb 14.5 Hct 42.3 MCV 88.5 MCH 30.3 MCHC 34.2 RDW 12.6 Plt Count 244 Neut % (Auto) 69.3 Lymph % (Auto) 20.4 L Craven % (Auto) 7.1 Eos % (Auto) 2.4 Baso % (Auto) 0.8 Neut # (Auto) 5700 Lymph # (Auto) 1700 Craven # (Auto) 600 Eos # (Auto) 200 Baso # (Auto) 100 Sodium 141 Potassium 4.0 Chloride 105 Carbon Dioxide 30 BUN 17 Creatinine 0.88 Estimated GFR > 60 BUN/Creatinine Ratio 19.3 Glucose 91 Calcium 9.7 Magnesium Total Bilirubin 0.4 AST 36 ALT 31 Alkaline Phosphatase 73 Total Creatine Kinase 58 CK-MB (CK-2) TNP CK-MB (CK-2) Rel Index TNP Troponin I < 0.012 Total Protein 8.0 Albumin 4.2 Globulin 3.8 Albumin/Globulin Ratio 1.1 Lipase 191 Procalcitonin 0.05 TSH Nasal Screen MRSA (PCR) SARS-CoV-2 (PCR) Negative 05/31/22 05/31/22 05/31/22 14:25 14:25 18:30 WBC RBC Hgb Hct MCV MCH MCHC RDW Plt Count Neut % (Auto) Lymph % (Auto) Craven % (Auto) Eos % (Auto) Baso % (Auto) Neut # (Auto) Lymph # (Auto) Craven # (Auto) Eos # (Auto) Baso # (Auto) Sodium Potassium Chloride Carbon Dioxide BUN Creatinine Estimated GFR BUN/Creatinine Ratio Glucose Calcium Magnesium 2.3 Total Bilirubin AST ALT Alkaline Phosphatase Total Creatine Kinase CK-MB (CK-2) CK-MB (CK-2) Rel Index Troponin I Total Protein Albumin Globulin Albumin/Globulin Ratio Lipase Procalcitonin TSH 1.07 Nasal Screen MRSA (PCR) Not detected SARS-CoV-2 (PCR) Assessment & Plan Assessment & Plan narrative: Jessica Jacobo is a 62-year-old female with a reported history of hypertension on propranolol who presented today with dizziness lightheadedness and bradycardia. Admitted for observation for symptomatic bradycardia and near-syncope. 1. Symptomatic bradycardia, with near-syncope, acute, present on admission -patient reports history of hypertension requiring propranolol 20 mg b.i.d., reviewed to family practice charts no mention of history of hypertension, and no previous vital sign documentation demonstrates hypertension. -I suspect that her bradycardia is exacerbated by a combination of the following factor- likely taking the propranolol for anxiety and is overmedicated, in addition to clonazepam 0.5 mg twice daily combined with her malnutrition BMI 20.6, hypovolemia and acute grief secondary to the recent loss of her spouse. -I do not believe the patient has hypertension, will evaluate while in the hospital without medication, recommend patient is discharged with patient education regarding home blood pressure log for 2 weeks, and then follow-up with primary care regarding blood pressure. -If bradycardia is resistant patient may require transfer for pacemaker. -HR 37-53, RR 20-28 -patient on strict fall precautions -holding patient's propranolol and clonazepam-I suspect that she does not need hypertension management. -orthostatics q.4 hours while awake -D5 NS at 100 cc/HR for fluid hydration as pt appears malnourished and hypovolemic. -A1c ordered but our machine is down over the weekend, we will do a.c. HS blood sugar checks to monitor for hypoglycemia. -dietary consult -EKG which I personally reviewed sinus bradycardic rhythm with a rate of 69 first-degree AV block with a left axis and left bundle branch block. -Troponin negative - repeat in am -echo and stress test tomorrow -BNP/TSH WNL -encourage oral intake -PT/OT eval 2. Grief, acute, present on admission -[employer]/forensic social worker consult- recommend community support services, and evaluation of in home support/safety, grief counseling support services -holding clonazepam and propranolol -consider discussing starting the patient on an SSRI for 3-6 months to support grieving process safely, Recommend patient edu handout on Celexa 10mg QD-recommend follow up appoint with PCP after 2 weeks on medication for evaluation. 3. Malnutrition, moderate, acute on chronic, present on admission -as evidence by BMI 20.6 -patient's malnutrition places them at high risk for medical and surgical complications in relation to acute illness/chronic illness. This increases the difficulty in complexity of medical management and increases the chances poor outcomes such as mortality and morbidity as well as impaired wound healing, and immune suppression. -dietary consult ordered to evaluate and implement steps to improve caloric intake and nutrition. Code status:Full Surrogate decision maker: Min Cabral COVID PCR:Negative COVID vaccination: Fully vaccinated DVT/VTE prophylaxis: Lovenox and SCDs Disposition: Patient admitted for observation expected length of stay greater than 2 midnights. I have utilized all available immediate resources to obtain, update, or review the patient's current medications. I confirmed that the patient's advanced care plan is present, Code status is documented and/or surrogate decision maker is listed in the patient's medical record. I have personally reviewed patient's chart notes from PCP, specialists, diagnostic imaging, and laboratory results. Quality VTE Deep Vein Thrombosis/Pulmonary Embolism Present on Admission: No
[2022-05-31] MEDS: DEXTROSE 5%-0.9% NS 1,000 ML 100 ML IV (22:22)
[2022-05-31 22:44] LABS: NT-proBNP (BNP-Adult 18+) 122 pg/mL (<125)
[2022-05-31 23:11] LABS: Troponin I < 0.012 ng/mL (0.01-0.034)
[2022-06-01] VITALS (33 sets, daily range): BP systolic 76–133; BP diastolic 50–68; PULSE 34–93; RESP 15–24; TEMP 36.2–36.7; O2SAT 95–100
[2022-06-01 04:56] LABS: Troponin I < 0.012 ng/mL (0.01-0.034)
[2022-06-01 05:30] LABS: BUN Creatinine Ratio 24.3 (6-22); Blood Urea Nitrogen 17 mg/dL (7-17); Calcium 8.4 mg/dL (8.4-10.2); Carbon Dioxide 25 mmol/L (22-32); Chloride 110 mmol/L (98-107); Estimated Glomerular Filt Rate > 60 mL/min (>60); Glucose 108 mg/dL (80-110); HEMOLYSIS 21 (0-50); Potassium 3.9 mmol/L (3.4-5.1); Sodium 141 mmol/L (137-145)
[2022-06-01] MEDS: ENOXAPARIN 40 MG/0.4 ML SYRINGE SUBCUT (08:30)
--- NOTE | 2022-06-01 10:56 | PT.IIE ---
Current Diagnoses Bradycardia, unspecified (05/31/22) Surgical History (Last Updated 06/01/22 @ 02:05 by Tracy Gandara [facility]) History of breast biopsy Medical History (Last Updated 06/01/22 @ 02:05 by Tracy Gandara [facility]) Anxiety Physical Therapy Inpatient Evaluation/Re-Eval M1 PT/OT-IP Prior Functional Status Start: 06/01/22 10:44 Freq: Status: Active Protocol: Document 06/01/22 10:44 (Rec: 06/01/22 10:56 [id number]) Medical Review Prior Functional Status Medical History Reviewed Yes Diet/Fluid Consistency Regular Communication Independent Mobility and Gait Independent Activities of Daily Living and IADL's Independent Prior Functional Level (Other details) 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 Recent loss of spouse. Has two sons in [facility]. Social History Household Members spouse Living Arrangements Apartment/Condo Number of Floors (Floors) 3 or More Floors Number of Stairs To Enter/Railing? 3 floors. Main living on first floor, bed/bath on second, and office on 3rd floor. Railing on each stairwell. Home Environment Standard Height Toilet,Walk in Shower Employment Status [employer] Employed M2 PT-IP Current Condition Start: 06/01/22 10:44 Freq: Status: Active Protocol: Document 06/01/22 10:44 BC (Rec: 06/01/22 10:56 [id number]) Physical Therapy Current Condition Current Condition Evaluation Date 06/01/22 Treatment Diagnosis Bradycardia and near syncope Onset Date 05/31/22 M3 PT-IP Subjective Start: 06/01/22 10:44 Freq: Status: Active Protocol: Document 06/01/22 10:44 (Rec: 06/01/22 10:56 [id number]) Subjective Physical Therapy Visit Type Type Initial Evaluation Visit Start Time 09:50 Visit Stop Time 10:30 Total Visit Minutes 35 Physical Therapy Visit Comments Patient Comments Pt discussing with PT her grief regarding loss of spouse . She is working with a grief counselor and has good family support. Patient Goals Identify cardiac needs and discharge home soon. Therapy Pain Assessment Pain When Pain Assessed At Rest Pain Present Pain Present Denied Pain M4 PT-IP Mobility and Gait Start: 06/01/22 10:44 Freq: Status: Active Protocol: Document 06/01/22 10:44 BC (Rec: 06/01/22 10:56 [id number]) PT-Transfer Assessment Sit to and From Stand Sit to and from Stand Independent Equipment Transfer Assistive Device None Transfers Transfer Destination Bed,Toilet Transfer Technique Stand Step Pivot Transfer Ability Level of Assist Independent Comments Mobility Comments Pt sitting up in chair pre and post PT assessment. She is independent with transfers in room and hygiene with toileting needs. Gait Assessment Gait Gait Assistance Required: Independent Distance (Feet) 400 Assistive Devices Assistive Device None,Gait Belt Gait Deviations General Gait Pattern Within Normal Limits Comments Gait Comments Independent Stair Climbing Assessment Evaluation Level of Assist On Stairs Independent Devices Stair Climbing Assistive Devices Right Railing Technique/Endurance Stair Climbing Direction Ascend and Descend Stair Climbing Technique Step Over Step Number of Steps Climbed 3 Query Text: Stair Climbing Set # Repetitions (reps) 2 Comments Stair Climbing Comments No deficits noted. PT-Balance Assessment Sitting Balance and Reactions Static Sitting Balance Ability Normal Dynamic Sitting Balance Ability Normal Standing Balance and Reactions Static Standing Balance Ability Normal Dynamic Standing Balance Ability Normal M5 PT-IP Objective Assessments Start: 06/01/22 10:44 Freq: Status: Active Protocol: Document 06/01/22 10:44 BC (Rec: 06/01/22 10:56 [id number]) Orientation Orientation/Cognition Level of Alertness Alert Orientation Name,Date,Place,Situation Language Function Ability No Deficits Noted Safety Awareness Understands Safety Issues Gross Range of Motion Upper Extremity ROM Assessment Within Functional Limits Lower Extremity ROM Assessment Within Functional Limits Strength Upper Extremity Strength Assessment Within Functional Limits Lower Extremity Strength Assessment Within Functional Limits Coordination Assessment Gross Coordination Gross Coordination WNL Sensation Assessment Sensation Gross Sensation WNL Muscle Tone Muscle Tone WNL Yes M6 PT-IP Treatment Start: 06/01/22 10:44 Freq: Status: Active Protocol: Document 06/01/22 10:44 BC (Rec: 06/01/22 10:56 [id number]) Physical Therapy Treatment Education Education Provided Safety Other Treatments Other Treatment Performed Reviewed vitals pre/post physical activity. Reviewed recommendations and no further need for PT. M7 PT-IP Assessment and Plan Start: 06/01/22 10:44 Freq: Status: Active Protocol: Document 06/01/22 10:44 BC (Rec: 06/01/22 10:56 BC [id number]) PT Summary Assessment and Plan Potential Rehabilitation Potential Excellent Status of Condition at Evaluation Stable Summary Progress Towards Goals Safe For Discharge,Goals Met Assessment Summary Pt admitted after near syncopal event while shopping. She presents with bradycardia . She will have further echo and stress test today. 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 Medication changes have been made on admission due to her bradycardia. Currently her HR is 44 bpm at rest and BP 108/56. CLOF: Pt is demonstrating independent mobility including self care ADLs, ambulation and stair mgmt. Post mobility assessment HR 58 and BP 112/58. There is no skilled PT needs at this time. Recommend d/c home when medically stable. Frequency of Treatment Frequency Of Treatment Discharge Recommendations To Nursing Amount of Assist Needed Independent Discharge Recommendations PT Discharge Recommendations Home Transportation Needs at Discharge Private Vehicle
--- NOTE | 2022-06-01 11:21 | CM.DANOTE ---
DCP/Assessment: Reviewed chart. Patient is a 62yr old female admitted to [facility] with bradycardia. PCP listed is Melania Banks. Primary payor is 1)[facility] out [facility]. Met with patient this AM explained CM/SW role. Patient reports that she is completely I in all ADL's. Patient reports that she was shopping at [employer] yesterday and she started to feel dizzy. Patient went home and ended up coming to the ED when symptoms did not resolve. Patient's HR has been in the 30's and 40s. Provider changed some of patient's medications in hopes that this would help. In the meantime ECHO and stress test ordered for tomorrow 06-02-22. Patient denies any d/c planning needs. Patient does have supportive friends in the area if needed. P: Home when stable. [place] Discharge Planning/Care Management CM Discharge Assessment Start: 06/01/22 11:19 Freq: Status: Active Protocol: Document 06/01/22 11:19 [place] (Rec: 06/01/22 11:21 [facility] [id number]) Discharge Planning Assessment Assigned Emergency Department Physician CRISSY Eddy Contact Information Min Noyola (son) [phone] Advance Directives? No History Provided By Patient,Medical Record Prior Living Arrangements Apartment/Condo Household Members spouse Type of transporation used prior to Drives own vehicle admit Independent with ADL's Yes Is patient alert and oriented? Yes Caregiver for Another No Barriers to Discharge No Discharge Plan Home Transportation Arrangement Patient reports that friend can pick her up. Referrals Initiated None needed Whiteboard Updated in Patient Room with Yes name and ext. # of Emergency Department Physician Review Status In Process Next Review Type Continued Stay Review
[2022-06-01] MEDS: clonazePAM 0.5 MG TABLET PO ×2 (14:12→21:30)
--- NOTE | 2022-06-01 14:31 | P.PN_ITS ---
Subjective Subjective Interval history: Jessica Jacobo? is a 62-year-old female history of hypertension on p ropranolol presented today with dizziness lightheadedness and bradycardia. Today she was at [facility] she felt like she might pass out she went into her blood pressure and heart rate she was found to have a heart rate in the 30s.? Patient's spouse just recently .? Patient's heart rate in the ED varied from 37-53, respiratory rate 20-28 initially on presentation. Now heart rate 41 and respiratory rate 18. Propranolol takes about 2 days to be completely out of the system. We will continue to follow vitals. Exam Vital Signs (past 8 hours): - 06/01/22 06:45 06/01/22 07:00 06/01/22 07:00 Temperature Pulse Rate 35 L 36 L Pulse Rate [Orthostatic Lying] Pulse Rate [Orthostatic Sitting] Pulse Rate [Orthostatic Standing] Respiratory Rate 20 16 Blood Pressure 91/52 L Blood Pressure [Orthostatic Lying] Blood Pressure [Orthostatic Sitting] Blood Pressure [Orthostatic Standing] Pulse Oximetry 98 97 Oxygen Flow Rate 06/01/22 07:15 06/01/22 07:30 06/01/22 07:45 Temperature 98.1 F Pulse Rate 37 L 93 H 89 Pulse Rate [Orthostatic Lying] Pulse Rate [Orthostatic Sitting] Pulse Rate [Orthostatic Standing] Respiratory Rate 17 20 24 Blood Pressure Blood Pressure [Orthostatic Lying] Blood Pressure [Orthostatic Sitting] Blood Pressure [Orthostatic Standing] Pulse Oximetry 99 98 99 Oxygen Flow Rate 06/01/22 08:00 06/01/22 08:00 06/01/22 11:29 Temperature Pulse Rate 38 L Pulse Rate [Orthostatic Lying] 41 L Pulse Rate [Orthostatic Sitting] 39 L Pulse Rate [Orthostatic Standing] 44 L Respiratory Rate 21 Blood Pressure 108/56 L Blood Pressure [Orthostatic Lying] 105/59 L Blood Pressure [Orthostatic Sitting] 99/57 L Blood Pressure [Orthostatic Standing] 114/68 Pulse Oximetry 98 Oxygen Flow Rate 06/01/22 12:30 Temperature 98 F Pulse Rate 41 L Pulse Rate [Orthostatic Lying] Pulse Rate [Orthostatic Sitting] Pulse Rate [Orthostatic Standing] Respiratory Rate 18 Blood Pressure 99/57 L Blood Pressure [Orthostatic Lying] Blood Pressure [Orthostatic Sitting] Blood Pressure [Orthostatic Standing] Pulse Oximetry 100 Oxygen Flow Rate 0 Oxygen Delivery Method Room Air Oxygen Flow Rate 0 Narrative Exam Narrative: General:? Patient is a well-developed, well-nourished in no distress at this time. HEENT:? Normocephalic, atraumatic, extraocular muscles intact.? Neck is supple and symmetric, trachea is midline, no adenopathy. Chest:? Normal AP diameter and contour without kyphoscoliosis, no nasal flaring, retractions, or tachypneic labored Lungs:? Auscultation of all lung pate are clear without adventitious sounds, wheezes, rhonchi, or rales. Cardio:? Bradycardic regular rate and rhythm without murmur, rubs, or gallops, no carotid bruit, no cardiac pulsations present. Abdomen:? Soft nontender, negative for organomegaly, or masses.? Bowel sounds are present in all 4 quadrants without guarding or rebound, no CVA tenderness. Musculoskeletal:? Muscle strength and tone are equal within normal limits, no deformity, crepitus, effusions, cyanosis, clubbing or edema present.? Full range of motion intact radial and pedal pulses are normal. Skin:? Warm, dry, hypovolemia, and intact without rashes, ulcerations or petechiae.? Neuro:? Alert and orientated x3, strength is +5/5 in all extremities, sensation to touch intact, no gross deficits noted of cranial nerves. Psych:? Patient has a well-kept appearance, appropriate affect, mental status attitude thought context and judgment are appropriate for age. Objective Labs 05/31/22 14:25 06/01/22 04:23 Labs: Laboratory Results - last 24 hr 05/31/22 05/31/22 05/31/22 11:50 14:25 14:25 WBC 8.3 RBC 4.78 Hgb 14.5 Hct 42.3 MCV 88.5 MCH 30.3 MCHC 34.2 RDW 12.6 Plt Count 244 Neut % (Auto) 69.3 Lymph % (Auto) 20.4 L Rogers % (Auto) 7.1 Eos % (Auto) 2.4 Baso % (Auto) 0.8 Neut # (Auto) 5700 Lymph # (Auto) 1700 Rogers # (Auto) 600 Eos # (Auto) 200 Baso # (Auto) 100 Sodium 141 Potassium 4.0 Chloride 105 Carbon Dioxide 30 BUN 17 Creatinine 0.88 Estimated GFR > 60 BUN/Creatinine Ratio 19.3 Glucose 91 Calcium 9.7 Magnesium Total Bilirubin 0.4 AST 36 ALT 31 Alkaline Phosphatase 73 Total Creatine Kinase 58 CK-MB (CK-2) TNP CK-MB (CK-2) Rel Index TNP Troponin I < 0.012 NT-Pro-B Natriuret Pep Total Protein 8.0 Albumin 4.2 Globulin 3.8 Albumin/Globulin Ratio 1.1 Lipase 191 Procalcitonin 0.05 TSH Nasal Screen MRSA (PCR) SARS-CoV-2 (PCR) Negative 05/31/22 05/31/22 05/31/22 14:25 14:25 14:25 WBC RBC Hgb Hct MCV MCH MCHC RDW Plt Count Neut % (Auto) Lymph % (Auto) Rogers % (Auto) Eos % (Auto) Baso % (Auto) Neut # (Auto) Lymph # (Auto) Rogers # (Auto) Eos # (Auto) Baso # (Auto) Sodium Potassium Chloride Carbon Dioxide BUN Creatinine Estimated GFR BUN/Creatinine Ratio Glucose Calcium Magnesium 2.3 Total Bilirubin AST ALT Alkaline Phosphatase Total Creatine Kinase CK-MB (CK-2) CK-MB (CK-2) Rel Index Troponin I NT-Pro-B Natriuret Pep 122 Total Protein Albumin Globulin Albumin/Globulin Ratio Lipase Procalcitonin TSH 1.07 Nasal Screen MRSA (PCR) SARS-CoV-2 (PCR) 05/31/22 05/31/22 06/01/22 18:30 22:40 04:23 WBC RBC Hgb Hct MCV MCH MCHC RDW Plt Count Neut % (Auto) Lymph % (Auto) Rogers % (Auto) Eos % (Auto) Baso % (Auto) Neut # (Auto) Lymph # (Auto) Rogers # (Auto) Eos # (Auto) Baso # (Auto) Sodium Potassium Chloride Carbon Dioxide BUN Creatinine Estimated GFR BUN/Creatinine Ratio Glucose Calcium Magnesium Total Bilirubin AST ALT Alkaline Phosphatase Total Creatine Kinase CK-MB (CK-2) CK-MB (CK-2) Rel Index Troponin I < 0.012 < 0.012 NT-Pro-B Natriuret Pep Total Protein Albumin Globulin Albumin/Globulin Ratio Lipase Procalcitonin TSH Nasal Screen MRSA (PCR) Not detected SARS-CoV-2 (PCR) 06/01/22 04:23 WBC RBC Hgb Hct MCV MCH MCHC RDW Plt Count Neut % (Auto) Lymph % (Auto) Rogers % (Auto) Eos % (Auto) Baso % (Auto) Neut # (Auto) Lymph # (Auto) Rogers # (Auto) Eos # (Auto) Baso # (Auto) Sodium 141 Potassium 3.9 Chloride 110 H Carbon Dioxide 25 BUN 17 Creatinine 0.70 Estimated GFR > 60 BUN/Creatinine Ratio 24.3 H Glucose 108 Calcium 8.4 Magnesium Total Bilirubin AST ALT Alkaline Phosphatase Total Creatine Kinase CK-MB (CK-2) CK-MB (CK-2) Rel Index Troponin I NT-Pro-B Natriuret Pep Total Protein Albumin Globulin Albumin/Globulin Ratio Lipase Procalcitonin TSH Nasal Screen MRSA (PCR) SARS-CoV-2 (PCR) [facility] Medical History Anxiety Surgical History History of breast biopsy Family History Father No problems noted. Mother No problems noted. Social History household members: spouse Smoking Status: Never smoker alcohol intake: current Assessment & Plan Assessment & Plan narrative: 1. Symptomatic bradycardia, with near-syncope, acute, present on admission -patient reports history of hypertension requiring propranolol 20 mg b.i.d., reviewed to family practice charts no mention of history of hypertension, and no previous vital sign documentation demonstrates hypertension. -suspect that her bradycardia is exacerbated by a combination of the following factors- likely taking the propranolol for anxiety and is overmedicated, in addition to? clonazepam 0.5 mg twice daily combined with her malnutrition BMI 20.6, hypovolemia and acute grief secondary to the recent loss of her spouse. -If bradycardia is resistant patient may require transfer for pacemaker. -patient on strict fall precautions -held patient's propranolol and clonazepam, we will reinitiate the clonazepam the prolonged use and not wanting withdrawal symptoms -orthostatics q.4 hours while awake -D5 NS at 100 cc/HR for fluid hydration as pt appears malnourished and hypovolemic initially and this can be discontinued. -A1c ordered but our machine is down over the weekend, we will do a.c. HS blood sugar checks to monitor for hypoglycemia. -dietary consult -Troponin negative - repeat in am today remains normal -echo and stress test tomorrow -both still pending -BNP/TSH WNL -encourage oral intake -PT/OT eval 2. Grief, acute, present on admission -SWITCHBOARD WIRER/certified social workers in health care consult- recommend community support services, and evalu ation of in home support/safety, grief counseling support services -holding clonazepam and propranolol initially. Clonazepam has been reinitiated today -consider discussing starting the patient on an SSRI for 3-6 months to support grieving process safely, Recommend patient edu handout on Celexa 10mg QD- recommend follow up appoint with PCP after 2 weeks on medication for evaluation. 3. Malnutrition, moderate, acute on chronic, present on admission -as evidence by BMI 20.6 -patient's malnutrition places them at high risk for medical and surgical complications in relation to acute illness/chronic illness.? This increases the difficulty in complexity of medical management and increases the chances poor outcomes such as mortality and morbidity as well as impaired wound healing, and immune suppression. -dietary consult ordered to evaluate and implement steps to improve caloric intake and nutrition. Code status:Full Surrogate decision maker: Min Noyola Son COVID PCR:Negative COVID vaccination:? Fully vaccinated DVT/VTE prophylaxis:? Lovenox and SCDs Quality VTE Deep Vein Thrombosis/Pulmonary Embolism Present on Admission: No
[2022-06-02] VITALS: BP 103/63; BP 126/58; BP 126/65; PULSE 41; PULSE 42; PULSE 44; RESP 19; TEMP 36.5; O2SAT 96
[2022-06-02 04:00] VITALS: BP 121/59; PULSE 42; RESP 20; TEMP 36.6; O2SAT 99
[2022-06-02 08:00] VITALS: BP 106/58; PULSE 40; RESP 17; TEMP 36.5; O2SAT 99
--- NOTE | 2022-06-02 09:17 | OT.IPNOTE ---
Spoke to nursing and states pt is completely independent with OT needs. Able to let case management know that pt has no OT needs. Discharge OT eval orders.
[2022-06-02] MEDS: ENOXAPARIN 40 MG/0.4 ML SYRINGE SUBCUT (09:44)
[2022-06-02] MEDS: clonazePAM 0.5 MG TABLET PO ×2 (09:45→20:47)
--- NOTE | 2022-06-02 15:01 | PM.PN.1 ---
Subjective Subjective Interval history: Not feeling a symptoms of dizziness or lightheadedness or shortness of breath or chest pain. Exam Vital Signs (past 8 hours): - 06/02/22 08:00 06/02/22 11:00 Temperature 97.7 F Pulse Rate 40 L Respiratory Rate 17 Blood Pressure 106/58 L Pulse Oximetry 99 Oxygen Delivery Method Room Air Oxygen Flow Rate 0 Oxygen Delivery Method Room Air Oxygen Flow Rate 0 Narrative Exam Narrative: General:? Patient is a well-developed, well-nourished in no distress at this time. HEENT:? Normocephalic, atraumatic, extraocular muscles intact.? Neck is supple and symmetric, trachea is midline, no adenopathy. Chest:? Normal AP diameter and contour without kyphoscoliosis, no nasal flaring, retractions, or tachypneic labored Lungs:? Auscultation of all lung pate are clear without adventitious sounds, wheezes, rhonchi, or rales. Cardio:? Bradycardic regular rate with rate today consistently 40 or above. And rhythm without murmur, rubs, or gallops, no carotid bruit, no cardiac pulsations present. Abdomen:? Soft nontender, negative for organomegaly, or masses.? Bowel sounds are present in all 4 quadrants without guarding or rebound, no CVA tenderness. Musculoskeletal:? Muscle strength and tone are equal within normal limits, no deformity, crepitus, effusions, cyanosis, clubbing or edema present.? Full range of motion intact radial and pedal pulses are normal. Skin:? Warm, dry, hypovolemia, and intact without rashes, ulcerations or petechiae.? Neuro:? Alert and orientated x3, strength is +5/5 in all extremities, sensation to touch intact, no gross deficits noted of cranial nerves. Psych:? Patient has a well-kept appearance, appropriate affect, mental status attitude thought context and judgment are appropriate for age. Objective Labs 05/31/22 14:25 06/01/22 04:23 [facility] Medical History Anxiety Surgical History History of breast biopsy Family History Father No problems noted. Mother No problems noted. Social History household members: spouse Smoking Status: Never smoker alcohol intake: current Assessment & Plan Assessment & Plan narrative: 1. Symptomatic bradycardia, with near-syncope, acute, present on admission -patient reports history of hypertension requiring propranolol 20 mg b.i.d., reviewed to family practice charts no mention of history of hypertension, and no previous vital sign documentation demonstrates hypertension. -suspect that her bradycardia is exacerbated by a combination of the following factors- likely taking the propranolol for anxiety and is overmedicated, in addition to? clonazepam 0.5 mg twice daily combined with her malnutrition BMI 20.6, hypovolemia and acute grief secondary to the recent loss of her spouse. -If bradycardia is resistant patient may require transfer for pacemaker. -patient on strict fall precautions -held patient's propranolol and clonazepam initially, reinitiate the clonazepam yesterday due to the prolonged use and not wanting withdrawal symptoms -orthostatics q.4 hours while awake, can decrease to Q shift -D5 NS at 100 cc/HR for fluid hydration as pt appears malnourished and hypovolemic initially-discontinue. -A1c ordered but our machine is down over the weekend, we will do a.c. HS blood sugar checks to monitor for hypoglycemia. -dietary consult -Troponins negative consistently -echo shows 65-70% ejection fraction and normal wall motion and stress test tomorrow -BNP/TSH WNL -encourage oral intake -PT/OT eval -we will obtain EKG today and discuss patient's plan and prognosis with Cardiology. 2. Grief, acute, present on admission -BUILDING PRINCIPAL/social work job titles consult- recommend community support services, and evaluation of in home support/safety, grief counseling support services -holding clonazepam and propranolol initially.? Clonazepam has been reinitiated today -consider discussing starting the patient on an SSRI for 3-6 months to support grieving process safely, Recommend patient edu handout on Celexa 10mg QD-recommend follow up appoint with PCP after 2 weeks on medication for evaluation. 3. Malnutrition, moderate, acute on chronic, present on admission -as evidence by BMI 20.6 -patient's malnutrition places them at high risk for medical and surgical complications in relation to acute illness/chronic illness.? This increases the difficulty in complexity of medical management and increases the chances poor outcomes such as mortality and morbidity as well as impaired wound healing, and immune suppression. -dietary consult ordered to evaluate and implement steps to improve caloric intake and nutrition. Code status:Full Surrogate decision maker: Min Noyola Son COVID PCR:Negative COVID vaccination:? Fully vaccinated DVT/VTE prophylaxis:? Lovenox and SCDs Quality VTE Deep Vein Thrombosis/Pulmonary Embolism Present on Admission: No
--- NOTE | 2022-06-02 15:32 | CM.DPC ---
DCP Cont: Per MD, plan is for pt to have Stress Test today if there are enough Stress Test slots and mapping pilot attempting to help determine which pts to have stress test today and which to wait until tomorrow. states she plans to consult Cardiology to see if recommendation is pacemaker placement before discharge to home or if pt can follow up as outpt. Per RN, pt has been independent in room and not mobility needs but somewhat anxious. Plan: SW to follow for Stress Test and Cardiology recommendations to determine any d/c planning needs and confirm safe plan of d/c home. CRISSY Chambers
[2022-06-02 17:00] VITALS: BP 111/61; BP 123/67; BP 125/72; PULSE 43; PULSE 45; PULSE 51; TEMP 36.2; O2SAT 98
[2022-06-02 20:00] VITALS: BP 122/67; PULSE 44; RESP 19; TEMP 36.8; O2SAT 98
[2022-06-02] MEDS: SODIUM CHLORIDE 0.9% FLUSH 10 ML IV (20:48)
[2022-06-03] VITALS: BP 108/55; BP 115/63; BP 135/65; PULSE 34; PULSE 45; PULSE 46; RESP 17; TEMP 36.2; O2SAT 97
[2022-06-03 04:00] VITALS: BP 117/61; PULSE 46; RESP 17; TEMP 36.4; O2SAT 98
[2022-06-03 08:00] VITALS: BP 121/57; PULSE 47; RESP 18; TEMP 36.1; O2SAT 100
[2022-06-03 12:00] VITALS: BP 127/71; PULSE 52; RESP 18; TEMP 36.2; O2SAT 99
--- NOTE | 2022-06-03 12:21 | DIET.CONS2 ---
Dietary Inpatient Consultation Note Admission Date: 06/01/2022 12:02 Pt in grief state, consuming 50-100% meals in hospital. Pts BMI WNL for age. Diet: 06/01/22 Breakfast Heart Healthy Diet Diet Modifications: Sodium Level: 2 gm Sodium Nutrition Percent Meal Consumed 100% 06/02/22 17:20 Percent Meal Consumed 50% 06/01/22 18:03 Percent Meal Consumed 50% 06/01/22 12:32 Electronically Signed by: Emi Euceda 06/03/22 12:21 Clinical Dietitian [address] [id number]
[2022-06-03] MEDS: clonazePAM 0.5 MG TABLET PO (12:25)
[2022-06-03] MEDS: SODIUM CHLORIDE 0.9% FLUSH 10 ML IV (12:29)
--- NOTE | 2022-06-03 14:25 | DI.NM.S_ITS ---
DATE OF SERVICE: 06/03/2022 PROCEDURE PERFORMED: Exercise treadmill, converted to pharmacologic vasodilator stress and rest myocardial perfusion imaging with gating to assess ejection fraction and regional wall motion. ORDERING PROVIDER: Jacquelyn Alexis M.D. INDICATIONS: The patient is a 62-year-old female with a LBBB admitted with lightheadedness and palpitations. CARDIAC STRESS: The patient was initially stressed by treadmill. Her resting ECG shows sinus bradycardia at 46 BPM with a LBBB and a normal appearing P wave. Within the first minute of exercise, she appears to develop atrial tachycardia with 2-1 AV conduction with a ventricular rate of around 146 BPM. She felt lightheaded and exercise was terminated and she was subsequently stress by infusion of regadenoson 0.4 mg. With this, she had no further symptoms but continued to have intermittent atrial tachycardia with 2 and 3-1 AV conduction, but times sinus rhythm with PACs in a bigeminal pattern. There were no significant ST-segment shifts and she had no further rapid arrhythmias. In recovery, she was in sinus rhythm in the 70s with supraventricular bigeminy. Per protocol, 26.3 millicuries of technetium-99m Myoview was injected and imaged 20 minutes later using a gated SPECT acquisition protocol. Earlier in the day while at rest, she had been injected with 9.0 millicuries of technetium-99m Myoview and was imaged 25 minutes later, again using a gated SPECT acquisition protocol. FINDINGS: 1. Raw data. There is fairly good myocardial tracer uptake although with moderate breast shadows that clearly produce some attenuation. Lung/heart ratio is normal at 0.32 with a normal TID ratio of 1.04. 2. Quantitated gated SPECT: Post-stress ejection fraction is estimated at 71% without any focal wall motion abnormality and specifically, the anterior wall and anterior septum have normal contractility. The resting images could not be gated, but the post-stress end-diastolic volume is normal at 107 mL. 3. Myocardial perfusion imaging: Post-stress supine images shows a fairly normal myocardial perfusion pattern with the exception of a very subtle defect in the mid to distal anterior septum in a pattern consistent with LBBB. This defect persists slightly on the prone images, but is improved. The resting images show similar perfusion pattern without any areas of improvement and the defect appears more prominent. IMPRESSION: 1. Probable normal myocardial perfusion study for ischemia. 2. Subtle, fixed mid to distal anterior septal defect that most likely reflects artifact from LBBB conduction. While a previous small nontransmural infarction cannot be entirely excluded, there is no regional wall motion abnormality in this area. There is no evidence for any ischemia. 3. Normal left ventricular systolic function without any focal wall motion abnormality. 4. She developed atrial tachycardia with minimal exercise with variable atrioventricular conduction with heart rates intermittently up to 140 to 150 bpm. She had occasional PACs in a bigeminal pattern. Her LBBB precludes any assessment of ST-segment abnormalities and there no obvious ventricular ectopy. Jessica Golden - DAVID/aaliyah/evelio doc#: [id number]/job#: [id number] dd: 06/03/2022 13:01:00 dt: 06/03/2022 14:11:00 DICTATING MD/COPIES TO: Roman Olvera MD; Jacquelyn Alexis MD COPIES MNE: MAC; ; Jacquelyn Alexis MD
--- NOTE | 2022-06-03 14:33 | CM.DPC ---
DCP Cont: Per MD, pt to have stress test today and then once results back then pt can likely d/c home later today an no need for discussion with Employment Representative regarding pacemaker placement and pt can follow up outpt. MD does not anticipate any barriers to discharge or discharge needs. Plan: SW to follow for likely plan of pt d/c home tonight after stress test results and outpt f/u and pt active and independent at baseline. Yumiko Jeong MSW
--- NOTE | 2022-06-03 15:26 | PM.DS.1 ---
History of Present Illness History of Present Illness Date Patient Seen: 06/03/22 Time Patient Seen: 15:40 Chief complaint: Dizziness, Low BP, fatigue,not feeling right Narrative: Jessica Jacobo is a 62-year-old female history of hypertension on propranolol presented today with dizziness lightheadedness and bradycardia. Today she was at [employer] she felt like she might pass out she went into her blood pressure and heart rate she was found to have a heart rate in the 30s.? Patient's spouse just recently . Patient's heart rate in the ED varied from 37-53, respiratory rate 20-28. On admit patient denies chest pain, shortness in breath, headache, changes in vision, difficulty swallowing, speech impairment, numbness, tingling, difficulty with ambulation, recent falls, head injury, LOC, fever, body aches, chills, cough, recent exposure to illness, abdominal pain, nausea, vomiting, urinary incontinence/retention, dysuria, frequency, urgency, hematuria, bowel changes, constipation, incontinence, melena, rashes, recent changes to medication, illness, injury, or trauma. Patient appears hypovolemic, malonourished female. Vitals 98.7, BP 104/58, pulse 40, respirations 20, O2 saturation 97% on room air. Patient's laboratory and diagnostic workups are predominantly unremarkable to include negative COVID, negative chest x-ray. Patient's EKG which I personally reviewed sinus bradycardic rhythm with a rate of 69 first-degree AV block with a left axis and left bundle branch block. Should be noted that patient takes propranolol 20 mg b.i.d. for a reported history of hypertension and clonazepam 0.5 mg p.o. b.i.d. patient admitted for observation for symptomatic bradycardia and near-syncope. Discharge Providers Provider Date of admission: 06/01/22 12:02 Discharge Date: 06/03/22 Primary care physician: CAMERON Chua Consults: 05/31/22 22:05 Consult to Dietitian, Adult Routine Comment: Reason For Exam: BMI 20.6 05/31/22 22:06 Consult to Discharge Planning Routine Comment: Consult to Occupational Therapy Evaluate & Treat Comment: Physician Instructions: Evaluate and treat Consult to Physical Therapy Evaluate & Treat Comment: Physician Instructions: Evaluate and Treat 06/01/22 02:21 Consult to [employer] - Proctologist Routine Comment: recent loss of spouse [employer] Consult needed for:: Behavioral Health Assess Discharge provider: Manolo Crowder DO Summary Hospital Course Discharge Diagnosis: 1. Symptomatic bradycardia, with near-syncope, acute, present on admission -came in with HR in 20's and symptomatic -patient reports history of hypertension requiring propranolol 20 mg b.i.d., reviewed to family practice charts no mention of history of hypertension, and no previous vital sign documentation demonstrates hypertension. -suspect that her bradycardia is exacerbated by a combination of the following factors- likely taking the propranolol for anxiety and is overmedicated, in addition to?clonazepam 0.5 mg twice daily combined with her malnutrition BMI 20.6, hypovolemia and acute grief secondary to the recent loss of her spouse. -held patient's propranolol and clonazepam initially, reinitiate the clonazepam yesterday due to the prolonged use and not wanting withdrawal symptoms -Troponins negative consistently -echo shows 65-70% ejection fraction and normal wall motion -during stress test had an episode of atrial tachycardia to 104's which resolved -Dr. Olvera cardiology recommended stopping propanolol on dc and f/u for outpatient Holter monitor and referral to Dr. Flor GUPTA at [facility] for assessment, no pacemaker needed at this time -TSH normal at 1.07 -EKG since holding beta [place] x3 days showed sinus bradycardia in 40's with 1st degree heart block -setup new PCP appt with Dr. Falcon at [facility] 2. Grief, acute, present on admission -lost unexpectedly 1 year ago -[employer]/psychosocial rehabilitation counselor consult- recommend community support services, and evaluation of in home support/safety, grief counseling support services -holding clonazepam and propranolol initially.? Clonazepam has been reinitiated -consider discussing with PCP starting the patient on an SSRI for 3-6 months to support grieving process safely 3. Malnutrition, moderate, acute on chronic, present on admission -as evidence by BMI 20.6 -patient's malnutrition places them at high risk for medical and surgical complications in relation to acute illness/chronic illness.? This increases the difficulty in complexity of medical management and increases the chances poor outcomes such as mortality and morbidity as well as impaired wound healing, and immune suppression. -dietary consult ordered to evaluate and implement steps to improve caloric intake and nutrition. Hospital Course: See problem list above. Time Spent with Patient Time spent: Greater than 30 minutes Exam Vital Signs (past 8 hours): - 06/03/22 08:00 06/03/22 12:00 Temperature 96.9 F L 97.2 F L Pulse Rate 47 L 52 L Respiratory Rate 18 18 Blood Pressure 121/57 L 127/71 Pulse Oximetry 100 99 Oxygen Flow Rate 0 0 Oxygen Delivery Method Room Air Oxygen Flow Rate 0 Narrative Exam Narrative: General:? Patient is a well-developed, well-nourished in no distress at this time. HEENT:? Normocephalic, atraumatic, extraocular muscles intact.? Neck is supple and symmetric, trachea is midline, no adenopathy. Chest:? Normal AP diameter and contour without kyphoscoliosis, no nasal flaring, retractions, or tachypneic labored Lungs:? Auscultation of all lung pate are clear without adventitious sounds, wheezes, rhonchi, or rales. Cardio:? Bradycardic regular rate with rate today consistently 40 or above. And rhythm without murmur, rubs, or gallops, no carotid bruit, no cardiac pulsations present. Abdomen:? Soft nontender, negative for organomegaly, or masses.? Bowel sounds are present in all 4 quadrants without guarding or rebound, no CVA tenderness. Musculoskeletal:? Muscle strength and tone are equal within normal limits, no deformity, crepitus, effusions, cyanosis, clubbing or edema present.? Full range of motion intact radial and pedal pulses are normal. Skin:? Warm, dry, hypovolemia, and intact without rashes, ulcerations or petechiae.? Neuro:? Alert and orientated x3, strength is +5/5 in all extremities, sensation to touch intact, no gross deficits noted of cranial nerves. Psych:? Patient has a well-kept appearance, appropriate affect, mental status attitude thought context and judgment are appropriate for age. Objective Labs 05/31/22 14:25 06/01/22 04:23 [facility] Medical History Anxiety Surgical History History of breast biopsy Family History Father No problems noted. Mother No problems noted. Social History household members: spouse Smoking Status: Never smoker alcohol intake: current Discharge Plan Discharge Plan Patient Disposition: Home Provider Discharge Comment: You were admitted with symptomatic bradycardia due to your propranolol. Your stress test was reassuring, but you had an episode of atrial tachycardia which made your HR jump to the 140's then you went back into normal rhythm. I spoke to a grief counselor who suggested you see Dr. Ray swiss type screw machine operator at [facility] for further workup and that a pacemaker at this time is not warranted. We've found you a new PCP at [facility] with Dr. Tristin Falcon who is a personal friend of [facility]. He will then refer you to Dr. Ray. Discharge orders & Medications Prescriptions: Continued clonazepam 0.5 mg tablet 0.5 mg PO BID Multivitamin 50 Plus Tablet 1 tab PO DAILY cholecalciferol (vitamin D3) 10 mcg (400 unit) capsule 400 unit PO DAILY Patient Comments: Take 1 capsule by mouth once a day Discontinued propranolol 10 mg tablet 20 mg PO BID Follow up/Referrals: Melania Banks FNP-C [Primary Care Provider] - Visit Report/Discharge Packet Stand Alone Forms: Patient Portal/API, Stroke Signs & Symptoms Discharge Data Primary Care Provider: Melania Banks Discharges patient from system. Discharge Date/Time: 06/03/22 15:27 Quality VTE Deep Vein Thrombosis/Pulmonary Embolism Present on Admission: No
--- NOTE | 2022-06-03 16:01 | PC.NURSE ---
Pt dressed independently, IVs taken out. D/c teaching effective. Pt will get old PCP and get a referral to agricultural engineering technician at [facility]. Pt's friend is picking her up. Pt left unit at 1340 via wheelchair.
== END 2022-06-03 15:27 | disposition home or self-care (01) | DRG 309 ==
LOC: ED 14:13 → ICU 18:07 → AC 06-02 06:27
PROVIDERS: Nurse Practitioner Family; Admitting Provider Neuromusculoskeletal Medicine, Sports Medicine; Emergency Provider Emergency Medicine; PCP Registered Nurse; Referring Provider Emergency Medicine; Visit Provider Neuromusculoskeletal Medicine, Sports Medicine
DX: R00.1 Bradycardia, unspecified (principal); E44.0 Moderate protein-calorie malnutrition; F43.21 Adjustment disorder with depressed mood; I44.7 Left bundle-branch block, unspecified; I44.1 Atrioventricular block, second degree; F41.9 Anxiety disorder, unspecified; R55 Syncope and collapse; T44.7X5A Adverse effect of beta-adrenoreceptor antagonists, initial encounter; Z20.822 Contact with and (suspected) exposure to COVID-19; Z68.20 Body mass index [BMI] 20.0-20.9, adult
CPT/HCPCS: 36415; 71045; 78452; 80048; 80053; 82550; 82962; 83690; 83735; 83880; 84145; 84443; 84484; 85025; 87635; 87797; 93005; 93010; 93017; 93306; 96374; 97161; 97530; 99284; C9803; G0378; A9502; J1610; J1650; J2785